=== PATIENT | female | born 1950 | race Caucasian/White ===

== ENCOUNTER → 2022-08-13 | Outpatient (CLI) | payer MEDICARE, OTHER ==
[~2022-08-13] MED LIST: DRIS50003 PO; LOSA100T5; MELO15TA28; OMEP40CA5
== END ==
LOC: M LABSMTC 09:12
PROVIDERS: ATTEND Anesthesiology
DX: Z01.812 Encounter for preprocedural laboratory examination (principal); Z11.52 Encounter for screening for COVID-19

== ENCOUNTER 2022-08-18 06:36 | Day surgery (SDC) | payer MEDICARE, OTHER ==
[~2022-08-18] VITALS: Ht 167.6 cm; Wt 104.2 kg
[~2022-08-18 06:36] MED LIST changes: +CYCLOPENTOLATE 1% OPHTH SOLN 2 ML BTL OS SCH; +FLURBIPROFEN 0.03% OPHTH SOLN 2.5 ML OS SCH; +PHENYLEPHRINE 2.5% OPHTH SOL 2ML OS SCH; +TETRACAINE 0.5% OPHTH SOLN 4ML OS SCH
[2022-08-18] MEDS ORDERED: LR 1,000 ML IV SCH (07:00)
[2022-08-18] MEDS ORDERED: LIDOCAINE 1% 1ML PF SYRINGE (OR EYE CASES) As Ordered ONE (07:51)
[2022-08-18 08:53] VITALS: BP 153/81
== END 2022-08-18 09:15 | disposition home or self-care (01) ==
LOC: M SDC 06:36
PROVIDERS: ATTEND Ophthalmology
DX: H25.12 Age-related nuclear cataract, left eye (principal); I10 Essential (primary) hypertension; Z79.899 Other long term (current) drug therapy; Z88.1 Allergy status to other antibiotic agents; Z88.2 Allergy status to sulfonamides
CPT/HCPCS: 66984; V2632

== ENCOUNTER → 2022-09-10 | Outpatient (CLI) | payer MEDICARE, OTHER ==
[~2022-09-10] MED LIST changes: -CYCLOPENTOLATE 1% OPHTH SOLN 2 ML BTL OS SCH; -FLURBIPROFEN 0.03% OPHTH SOLN 2.5 ML OS SCH; -LOSA100T5; +LOSA100T5 PO; -MELO15TA28; +MELO15TA28 PO; -OMEP40CA5; +OMEP40CA5 PO; -PHENYLEPHRINE 2.5% OPHTH SOL 2ML OS SCH; -TETRACAINE 0.5% OPHTH SOLN 4ML OS SCH
== END ==
LOC: M LABSMTC 09:20
PROVIDERS: ATTEND Anesthesiology
DX: Z01.812 Encounter for preprocedural laboratory examination (principal); Z11.52 Encounter for screening for COVID-19

== ENCOUNTER 2022-09-15 06:33 | Day surgery (SDC) | payer MEDICARE, OTHER ==
[~2022-09-15] VITALS: Ht 167.6 cm; Wt 101.7 kg
[~2022-09-15 06:33] MED LIST changes: +LIDOCAINE 1% SDV 5ML VIAL As Ordered ONE
[2022-09-15] MEDS: TETRACAINE 0.5% OPHTH SOLN 4ML OS SCH ×3 (06:58→08:08)
[2022-09-15] MEDS ORDERED: LR 1,000 ML IV SCH (07:00)
[2022-09-15] MEDS: FLURBIPROFEN 0.03% OPHTH SOLN 2.5 ML OS SCH ×3 (07:02→07:19)
[2022-09-15] MEDS: PHENYLEPHRINE 2.5% OPHTH SOL 2ML OS SCH ×3 (07:02→07:19)
[2022-09-15] MEDS: CYCLOPENTOLATE 1% OPHTH SOLN 2ML BTL OS SCH ×3 (07:02→07:19)
[2022-09-15 08:30] VITALS: BP 143/67
== END 2022-09-15 09:32 | disposition home or self-care (01) ==
LOC: M SDC 06:33
PROVIDERS: ATTEND Ophthalmology
DX: H25.12 Age-related nuclear cataract, left eye (principal); I10 Essential (primary) hypertension; Z88.1 Allergy status to other antibiotic agents; Z88.2 Allergy status to sulfonamides; Z79.899 Other long term (current) drug therapy
CPT/HCPCS: 66984; V2632